=== PATIENT | female | born 1955 | race Two or more races ===

== ENCOUNTER 2018-06-26 19:32 | Inpatient (IN) | payer MEDICARE, OTHER ==
[~2018-06-26] VITALS: Ht 127 cm; Wt 54.0 kg
[2018-06-26] MEDS ORDERED: SENN-18 PO (20:28)
[2018-06-26] MEDS ORDERED: MECL12.582 PO (20:29)
[2018-06-26] MEDS ORDERED: CARB-93 PO (20:32)
[2018-06-26] MEDS ORDERED: CALC-494 PO (20:34)
[2018-06-26] MEDS ORDERED: BENA40TA8 PO (20:35)
[2018-06-26] MEDS ORDERED: MIRT15TA7 PO (20:36)
[2018-06-26] MEDS ORDERED: OLAN10TA3 PO (20:37)
[2018-06-26] MEDS ORDERED: LAMO200T2 PO (20:37)
[2018-06-26] MEDS ORDERED: METF-440 PO (20:38)
[2018-06-26] MEDS ORDERED: LORAZEPAM 0.5 MG TABLET PO PRN (21:00)
[2018-06-26] MEDS ORDERED: MAGNESIUM HYDROXIDE 30 ML UDC PO PRN (21:00)
[2018-06-26] MEDS ORDERED: MAG HYDROX/AL HYDROX/SIMETH 30 ML UDC PO PRN (21:00)
[2018-06-26] MEDS ORDERED: ACETAMINOPHEN 325 MG TABLET PO PRN (21:00)
[2018-06-26] MEDS: BLOOD SUGAR DIAGNOSTIC 1 EACH STRIP IN SCH (21:20)
[2018-06-26] MEDS ORDERED: SENNOSIDES 8.6 MG TABLET PO PRN (21:30)
[2018-06-26] MEDS ORDERED: MECLIZINE HCL 12.5 MG TABLET PO PRN (21:30)
[2018-06-26] MEDS ORDERED: DEXTROSE 50%-WATER 50 ML DISP.SYRIN IV PRN (21:30)
[2018-06-26] MEDS ORDERED: LORAZEPAM 1 MG TABLET PO PRN (22:00)
[2018-06-26] MEDS: ZOLPIDEM TARTRATE 5 MG TABLET PO PRN (23:08)
--- NOTE | 2018-06-26 23:12 | NUR ---
GPS RN NOTES ; AMBIEN 5 MG PO PRN , PT. REFUSED TO TAKE , CHARGE NURSE MADE AWARE AND AMBIEN 5 MG, WASTE IN OMNICELL WITH CHARGE NURSE.
--- NOTE | 2018-06-26 23:16 | NUR ---
ADMISSION NOTES ADMITTED THIS 62 Y/O FEMALE PATIENT DIRECT ADMIT FROM [facility] , PT IS ON 5150 HOLD , GD ,DTS, PER HOLD , SHE ATTEMPTED TO PUT A TOOTHBRUSH 5,DOWN HER THROAT SHE IS NOT ABLE TO TO EXPLAIN RELIABLY WHY SHE DID THIS OR WHY SHE WAS TRYING TO GOUGE HER EYES OUT WITH HER FINGERNAILS,BEFORE BEING HOSPITAL , PT. HAS HX OF PSYCHOSIS, UPON FACE TO FACE ASSESSMENT PATIENT IS A&O X-1 UNCOOPERTIVE,DISORGNIZED HYPERVERBAL VERY AGGRESSIVE SCREAMING YELLING, FLAT AFFECT ,EASILY AGITATED , PT.IS POOR HISTORIAN, POOR INSIGHT ,POOR JUDGEMENT ,V/S WNL, NO ACUTE DISTRESS NOTED , MD AWARE AND NOTIFIED OF THE ADMISSION, PT. SKIN ASSESSMENT DONE, ENCOURAGED PT. VERBALIZED ANY FEELING CONCERN TO STAFF, ORIENT TO UNIT POLICY, WILL CONTINUE TO MONITOR FOR Q15 SAFETY AND BEHAVIOR.
[2018-06-27 00:48] VITALS: BP 137/80
[2018-06-27] MEDS: BLOOD SUGAR DIAGNOSTIC 1 EACH STRIP IN SCH ×4 (07:45→22:06)
[2018-06-27 07:55] LABS: BASOPHILS % (AUTO) 0.6 % (0.0-2.0); EOSINOPHILS % (AUTO) 1.9 % (0.0-6.0); HEMATOCRIT 42 % (33-45); HEMOGLOBIN 13.5 g/dL (11.5-14.8); LYMPHOCYTES # (AUTO) 1.7 /CMM (0.8-4.8); MEAN CORPUSCULAR HGB CONC 32 g/dl (31.0-36.0); MEAN CORPUSCULAR VOLUME 87 fL (82-100); MONOCYTES # (AUTO) 0.6 /CMM (0.1-1.30); MONOCYTES % (AUTO) 6.9 % (2.0-12.0); NEUTROPHILS # (AUTO) 5.8 /CMM (1.8-8.9); NEUTROPHILS % (AUTO) 69.6 % (43.0-81.0); PLATELET COUNT (AUTO) 305 /CMM (150-450); RDW COEFFICIENT OF VARIATION 13.1 (11.5-15.0); WHITE BLOOD COUNT (AUTO) 8.3 K/uL (4.3-11.0)
[2018-06-27 07:56] LABS: ALBUMIN 4.1 g/dL (3.4-5.0); BILIRUBIN,TOTAL 0.3 mg/dL (0.2-1.0); CALCIUM, SERUM 9.1 mg/dL (8.5-10.1); CREATININE 1.2 mg/dL (0.6-1.3); POTASSIUM 3.8 mmol/L (3.5-5.1); TOTAL PROTEIN, SERUM 7.9 g/dL (6.4-8.2)
[2018-06-27 08:00] VITALS: BP 163/81
[2018-06-27] MEDS: CARBIDOPA/LEVODOPA 25/100 MG 1 UDTAB PO SCH ×3 (09:18→16:08)
[2018-06-27] MEDS: CALCIUM CARBONATE 500 MG TAB.CHEW PO SCH (09:49)
[2018-06-27] MEDS: LamoTRIgine 100 MG TABLET PO SCH ×2 (09:49→21:58)
[2018-06-27] MEDS: OLANZAPINE 5 MG/TAB.RAPDIS PO SCH ×2 (11:06→21:58)
--- NOTE | 2018-06-27 14:35 | NUR ---
MAHI called the pt's son, Julian ([phone]), and he stated that he would like the SW to call him back around 3:30 when he is off of work.
[2018-06-27 16:00] VITALS: BP 116/73
--- NOTE | 2018-06-27 16:02 | NUR ---
Initial Discharge Plan: Pt currently resides at an assisted living facility called [facility] located at [address] [place] [address]; . Per pt's son, Julian ([phone]), he would like her to return. SW will work with the pt and the MD regarding appropriate discharge planning. SW will form a safe and proper discharge.
[2018-06-27] MEDS: BENAZEPRIL HCL 20 MG TABLET PO SCH (16:08)
--- NOTE | 2018-06-27 19:30 | NUR ---
GPS RN NOTE, RECEIVED PATIENT AWAKE AND IN BED, NO S/S OR COMPLAINTS OF PAIN AT THIS TIME. PATIENT IS DISPLAYING NO S/S OF APPARENT DISTRESS AT THIS TIME. PATIENT BREATHING IS UNLABORED WITH EQUAL RISE AND FALL OF THE CHEST. PATIENT IS ALERT AND ORIENTED X 1 -2 ON ROOM AIR WITH A SPO2 OF 97%. PATIENT IS MED COMPLIANT, DISORGANIZED, CONFUSED, COMBATIVE WITH CARE, HYPERVERBAL AT TIMES AND NEEDS REORIENTATION. PATIENT DENIES SUICIDE IDEATIONS AND HOMICIDAL IDEATIONS AT THIS TIME. PATIENT ASSISTED WITH TURING AND REPOSITIONING Q2HR AND PRN FOR COMFORT AND CIRCULATION. PATIENT HAS NO NEEDS AT THIS TIME. PATIENT EDUCATED ON THE USE OF THE CALL CHAMBERLAIN. PATIENT BED SIDE RAILS ARE UP X 2 FOR SAFETY, BED IS LOCKED AND LOW WILL CONTINUE TO MONITOR AND MAINTAIN SAFETY Q 15MIN WITH THE HELP OF STAFF.
[2018-06-27 20:18] VITALS: BP 123/81
[2018-06-27] MEDS: ATORVASTATIN 10 MG TABLET PO SCH (21:58)
[2018-06-28] MEDS: BLOOD SUGAR DIAGNOSTIC 1 EACH STRIP IN SCH ×4 (07:34→21:08)
[2018-06-28 08:00] VITALS: BP 102/61
[2018-06-28] MEDS: CARBIDOPA/LEVODOPA 25/100 MG 1 UDTAB PO SCH ×3 (08:55→17:18)
[2018-06-28] MEDS: OLANZAPINE 5 MG/TAB.RAPDIS PO SCH ×2 (08:55→21:08)
[2018-06-28] MEDS: LamoTRIgine 100 MG TABLET PO SCH ×2 (08:55→21:08)
[2018-06-28] MEDS: CALCIUM CARBONATE 500 MG TAB.CHEW PO SCH (08:56)
[2018-06-28] MEDS: BENAZEPRIL HCL 20 MG TABLET PO SCH ×2 (08:56→17:18)
--- NOTE | 2018-06-28 14:11 | NUR ---
MAHI called [facility] ([phone]) and spoke to Caitie who stated that an agreement was made stating that the pt can return to the facility if there are no behavioral concerns.
--- NOTE | 2018-06-28 14:18 | NUR ---
Caiite ([phone]) from [facility] stated that she would like notes closer to discharge faxed to her at the fax number: [phone].
[2018-06-28 16:00] VITALS: BP 108/62
[2018-06-28 19:50] VITALS: BP 93/53
[2018-06-28 20:00] VITALS: BP 93/53
[2018-06-28] MEDS: ATORVASTATIN 10 MG TABLET PO SCH (21:08)
[2018-06-28] MEDS: ZOLPIDEM TARTRATE 5 MG TABLET PO PRN (23:43)
[2018-06-29 08:00] VITALS: BP 100/65
[2018-06-29] MEDS: BLOOD SUGAR DIAGNOSTIC 1 EACH STRIP IN SCH ×4 (08:02→21:53)
[2018-06-29] MEDS: CALCIUM CARBONATE 500 MG TAB.CHEW PO SCH (08:50)
[2018-06-29] MEDS: BENAZEPRIL HCL 20 MG TABLET PO SCH ×2 (08:51→17:00)
[2018-06-29] MEDS: CARBIDOPA/LEVODOPA 25/100 MG 1 UDTAB PO SCH ×3 (08:51→17:13)
[2018-06-29] MEDS: OLANZAPINE 5 MG/TAB.RAPDIS PO SCH ×2 (08:51→21:52)
[2018-06-29] MEDS: LamoTRIgine 100 MG TABLET PO SCH ×2 (08:51→21:53)
--- NOTE | 2018-06-29 11:04 | NUR ---
WOUND CARE CONSULT: PT SEEN FOR DRY SKIN ON FEET. SOME DRY FLAKY SKIN NOTED TO FEET. RECOMMEND MOISTURIZER. DISCUSSED WITH NURSING STAFF. PT AMBULATORY WITH WALKER AND CONTINENT. SITTER AT BEDSIDE. WILL SEE PRN.
[2018-06-29 16:00] VITALS: BP 101/60
[2018-06-29] MEDS: INSULIN REGULAR, HUMAN 100 UNIT/ML 3 ML VIAL SQ PRN ×2 (17:58→21:54)
[2018-06-29 20:00] VITALS: BP 107/58
[2018-06-29] MEDS: ATORVASTATIN 10 MG TABLET PO SCH (21:52)
[2018-06-30 07:12] LABS: APPEARANCE,URINE CLOUDY (CLEAR); BILIRUBIN,URINE NEGATIVE (NEGATIVE); BLOOD, URINE NEGATIVE Ery/uL (NEGATIVE); COLOR,URINE YELLOW (YELLOW); KETONES,URINE TRACE (NEGATIVE); LEUKOCYTE ESTERASE ,URINE NEGATIVE (NEGATIVE); NITRITE, URINE NEGATIVE (NEGATIVE); PROTEIN,URINE NEGATIVE (NEGATIVE); UGLUCOSE NEGATIVE (NEGATIVE); UROBILINOGEN,URINE 0.2 EU/dL (0.2)
[2018-06-30 07:34] LABS: BACTERIA,URINE Moderate /HPF (None Seen); RBC,URINE 0-2 /HPF (0-2); SQUAMOUS EPITHELIAL CELL,UR Few /HPF (None Seen)
[2018-06-30 07:35] LABS: URINE AMORPHOUS URATE Many /HPF (None Seen); WBC,URINE 0-2 /HPF (0-3)
[2018-06-30] MEDS: BLOOD SUGAR DIAGNOSTIC 1 EACH STRIP IN SCH ×4 (07:38→21:49)
[2018-06-30 08:00] VITALS: BP 100/56
[2018-06-30] MEDS: CALCIUM CARBONATE 500 MG TAB.CHEW PO SCH (08:50)
[2018-06-30] MEDS: LamoTRIgine 100 MG TABLET PO SCH ×2 (08:50→21:47)
[2018-06-30] MEDS: CARBIDOPA/LEVODOPA 25/100 MG 1 UDTAB PO SCH ×3 (08:50→17:35)
[2018-06-30] MEDS: OLANZAPINE 5 MG/TAB.RAPDIS PO SCH (08:51)
[2018-06-30] MEDS: BENAZEPRIL HCL 20 MG TABLET PO SCH ×2 (08:51→17:00)
[2018-06-30 16:00] VITALS: BP 100/61
[2018-06-30 20:00] VITALS: BP 107/63
[2018-06-30] MEDS: ATORVASTATIN 10 MG TABLET PO SCH (21:47)
[2018-06-30] MEDS: INSULIN REGULAR, HUMAN 100 UNIT/ML 3 ML VIAL SQ PRN (21:50)
[2018-06-30] MEDS: OLANZAPINE 10 MG TABLET PO SCH (22:05)
[2018-07-01] MEDS: BLOOD SUGAR DIAGNOSTIC 1 EACH STRIP IN SCH ×4 (07:29→22:17)
[2018-07-01 08:00] VITALS: BP 112/68
[2018-07-01] MEDS: CARBIDOPA/LEVODOPA 25/100 MG 1 UDTAB PO SCH ×3 (08:13→16:34)
[2018-07-01] MEDS: CALCIUM CARBONATE 500 MG TAB.CHEW PO SCH (08:13)
[2018-07-01] MEDS: BENAZEPRIL HCL 20 MG TABLET PO SCH ×2 (08:14→16:34)
[2018-07-01] MEDS: LamoTRIgine 100 MG TABLET PO SCH ×2 (08:14→22:16)
[2018-07-01] MEDS: OLANZAPINE 5 MG/TAB.RAPDIS PO SCH (08:17)
[2018-07-01] MEDS: INSULIN REGULAR, HUMAN 100 UNIT/ML 3 ML VIAL SQ PRN (12:29)
[2018-07-01 16:00] VITALS: BP 99/60
[2018-07-01 20:00] VITALS: BP 111/67
[2018-07-01] MEDS: ATORVASTATIN 10 MG TABLET PO SCH (22:16)
[2018-07-01] MEDS: OLANZAPINE 10 MG TABLET PO SCH (22:16)
[2018-07-01] MEDS: ZOLPIDEM TARTRATE 5 MG TABLET PO PRN (22:17)
[2018-07-02] MEDS: BLOOD SUGAR DIAGNOSTIC 1 EACH STRIP IN SCH ×4 (07:53→21:16)
[2018-07-02 08:00] VITALS: BP 109/67
[2018-07-02] MEDS: CALCIUM CARBONATE 500 MG TAB.CHEW PO SCH (08:51)
[2018-07-02] MEDS: LamoTRIgine 100 MG TABLET PO SCH ×2 (08:51→21:15)
[2018-07-02] MEDS: OLANZAPINE 5 MG/TAB.RAPDIS PO SCH (08:51)
[2018-07-02] MEDS: BENAZEPRIL HCL 20 MG TABLET PO SCH ×2 (08:51→17:00)
[2018-07-02] MEDS: CARBIDOPA/LEVODOPA 25/100 MG 1 UDTAB PO SCH ×3 (08:53→17:06)
--- NOTE | 2018-07-02 10:07 | NUR ---
RN NOTE: PATIENT REFUSED COVERAGE. OFFERED 3X.
[2018-07-02] MEDS: INSULIN REGULAR, HUMAN 100 UNIT/ML 3 ML VIAL SQ PRN ×2 (12:51→21:17)
[2018-07-02 16:00] VITALS: BP 95/55
--- NOTE | 2018-07-02 18:54 | NUR ---
GPS OVERFLOW TRANSFER NOTE RECEIVED REPORT FROM MAGDALENO KIRKPATRICK. PT IS A/O X2, AFEBRILE. RESPIRATIONS ARE EVEN AND UNLABORED, NOT IN ANY ACUTE DISTRESS NOTED. PT DENIES ANY PAIN, NO SOB, N/V NOTED. NO IV ACCESS. SITTER AT BEDSIDE. WILL ENDORSE TO NEXT SHIFT FOR CONTINUITY OF CARE.
--- NOTE | 2018-07-02 19:50 | NUR ---
RN INITIAL NOTES: RECEIVED REPORT FROM CAMILO DOLAN. PT TRANSFERRED FROM GPS, PT IS IN BED, A/O X2 ON RA RESPIRATION EVEN AND UNLABORED, PT STATED SHE IS FROM [place] AND LANGUAGE IS [place]?,PT DENIES ANY PAIN OR DISCOMFORT AT THIS TIME. NO IV ACCESS PER GPS POLICY. PT IS CONTINENT, AMBULATORY WITH ASSISTANCE, DENIES ANY SI/HI AT THIS TIME. COMPLIANT WITH MEDICATION. SITTER AT BED SIDE. WILL CONTINUE TO MONITOR [id number] FOR SAFETY AND ANY CHANGES IN BEHAVIOR.
[2018-07-02 20:00] VITALS: BP 110/66
[2018-07-02] MEDS: ATORVASTATIN 10 MG TABLET PO SCH (21:15)
[2018-07-02] MEDS: OLANZAPINE 10 MG TABLET PO SCH (21:17)
--- NOTE | 2018-07-02 21:18 | NUR ---
accu check 131: blood sugar checked and reveal 131,2units of insulin given per sliding scale, pt tolerating po intake, will monitor for any s/s of hypoglycemia
[2018-07-03] MEDS: BLOOD SUGAR DIAGNOSTIC 1 EACH STRIP IN SCH ×4 (06:17→21:25)
[2018-07-03] MEDS: INSULIN REGULAR, HUMAN 100 UNIT/ML 3 ML VIAL SQ PRN ×4 (06:17→21:30)
--- NOTE | 2018-07-03 06:18 | NUR ---
ACCU CHECK 78: BLOOD SUGAR RESULT IS 78, NO INSULIN COVERAGE GIVEN PER SLIDING SCALE, ORANGE JUICE PROVIDED, PT DRINK 100%
--- NOTE | 2018-07-03 06:59 | NUR ---
rn clsoing notes: pt in bed, awake, remains a/o x2, remains calm and cooperative throughout the shift, denies any si/hi, no untoward behavior noted, sitter remains at bed side. pt's total hours of sleep is 8hrs. vs remains stable, needs attended. bed brake engaged, side rails up x2 for safety. will continue to monitor [id number] for safety and any changes in behavior. will endorse to day rn for continuity of care.
[2018-07-03] MEDS: BENAZEPRIL HCL 20 MG TABLET PO SCH ×2 (09:00→16:51)
[2018-07-03] MEDS: CALCIUM CARBONATE 500 MG TAB.CHEW PO SCH (09:09)
[2018-07-03] MEDS: OLANZAPINE 5 MG/TAB.RAPDIS PO SCH (09:11)
[2018-07-03] MEDS: LamoTRIgine 100 MG TABLET PO SCH ×2 (09:11→21:27)
[2018-07-03] MEDS: CARBIDOPA/LEVODOPA 25/100 MG 1 UDTAB PO SCH ×3 (09:11→16:51)
--- NOTE | 2018-07-03 16:06 | NUR ---
MAHI called the pt's son, Julian ([phone]), and stated that there is no discharge date yet but the SW will be sending more updated notes today to [facility] ([facility]) so that they are prepared for readmitting the pt.
--- NOTE | 2018-07-03 16:22 | NUR ---
MAHI faxed updated notes for the pt to Caitie ([phone]) from [facility] to her fax number: [phone].
--- NOTE | 2018-07-03 18:46 | NUR ---
GPS overflow Patient is A/O x1 , cooperative and compliant with her medication. No agitated behavior, ambulates independently with walker, standby assist. Continued on 5250 hold per psych, 1:1 sitter at the bedside. Will endorse to oncoming RN.
--- NOTE | 2018-07-03 19:15 | NUR ---
RN OPENING NOTES PATIENT AWAKE RESTING IN BED, A/O X1, PER DAY SHIFT NURSE PATIENT COOPERATIVE AND COMPLIANT WITH MEDICATION. 1:1 SITTER AT BEDSIDE. NO AGITATED BEHAVIOR NOTED AT THIS TIME. WILL CONTINUE 15 MINUTE CHECKS AND CONTINUE TO MONITOR.
[2018-07-03] MEDS: OLANZAPINE 10 MG TABLET PO SCH (21:26)
[2018-07-03] MEDS: ATORVASTATIN 10 MG TABLET PO SCH (21:27)
[2018-07-04 07:00] VITALS: BP 104/50
[2018-07-04] MEDS: BLOOD SUGAR DIAGNOSTIC 1 EACH STRIP IN SCH ×4 (07:07→21:16)
[2018-07-04] MEDS: CALCIUM CARBONATE 500 MG TAB.CHEW PO SCH (08:38)
[2018-07-04] MEDS: CARBIDOPA/LEVODOPA 25/100 MG 1 UDTAB PO SCH ×3 (08:38→16:28)
[2018-07-04] MEDS: BENAZEPRIL HCL 20 MG TABLET PO SCH ×2 (08:39→16:28)
[2018-07-04] MEDS: OLANZAPINE 5 MG/TAB.RAPDIS PO SCH (08:39)
[2018-07-04] MEDS: LamoTRIgine 100 MG TABLET PO SCH ×2 (09:14→21:16)
[2018-07-04] MEDS: INSULIN REGULAR, HUMAN 100 UNIT/ML 3 ML VIAL SQ PRN ×2 (12:12→16:30)
--- NOTE | 2018-07-04 18:15 | NUR ---
MS RN CLOSING NOTES Patient is A/O x1 , cooperative and compliant with her medication. Good appetite, no agitated behavior, ambulates independently with walker, standby assist. Continued GPS hospitalization per psych, on 5249 hold. 1:1 sitter at the bedside. Will endorse to oncoming RN.
--- NOTE | 2018-07-04 19:05 | NUR ---
RN OPENING NOTES PATIENT AWAKE RESTING IN BED, A/O X1, PATIENT COOPERATIVE AND COMPLIANT WITH MEDICATION. 1:1 SITTER AT BEDSIDE. NO AGITATED BEHAVIOR NOTED AT THIS TIME. WILL CONTINUE 15 MINUTE CHECKS AND CONTINUE TO MONITOR.
[2018-07-04 19:24] VITALS: BP 106/65
[2018-07-04] MEDS: OLANZAPINE 10 MG TABLET PO SCH (21:15)
[2018-07-04] MEDS: ATORVASTATIN 10 MG TABLET PO SCH (21:16)
[2018-07-04] MEDS: ZOLPIDEM TARTRATE 5 MG TABLET PO PRN (22:48)
[2018-07-05] MEDS: BLOOD SUGAR DIAGNOSTIC 1 EACH STRIP IN SCH ×4 (06:57→22:31)
[2018-07-05 07:49] VITALS: BP 101/90
[2018-07-05 08:00] VITALS: BP 101/74
--- NOTE | 2018-07-05 08:00 | NUR ---
RN NOTES PATIENT IN BED RESTING ALERT, ORIENTED X3. DENIES ANY PAIN OR DISCOMFORT. CALM AND COOPERATIVE. SITTER AT BEDSIDE. BED IN LOW LOCKED POSITION. CALL LIGHT WITHIN REACH. WILL CONTINUE TO MONITOR.
[2018-07-05] MEDS: CARBIDOPA/LEVODOPA 25/100 MG 1 UDTAB PO SCH ×3 (08:17→16:27)
[2018-07-05] MEDS: OLANZAPINE 5 MG/TAB.RAPDIS PO SCH (08:17)
[2018-07-05] MEDS: LamoTRIgine 100 MG TABLET PO SCH ×2 (08:17→22:15)
[2018-07-05] MEDS: CALCIUM CARBONATE 500 MG TAB.CHEW PO SCH (08:17)
[2018-07-05] MEDS: BENAZEPRIL HCL 20 MG TABLET PO SCH ×2 (08:39→16:27)
--- NOTE | 2018-07-05 09:00 | NUR ---
GPS RN NOTES PATIENT SEEN AND EVALUATED BY DR. JONES ORDERS TO HAVE [employer] ARRANGE PLACEMENT PATIENT READY TO BE DISCHARGED. [employer] MADE AWARE. WILL CONTINUE TO MONITOR.
--- NOTE | 2018-07-05 11:12 | NUR ---
MAHI called Caitie ([phone]) from [facility] and left a message for her due to the fact that she was in a meeting.
--- NOTE | 2018-07-05 12:14 | NUR ---
MAHI called Caitie ([phone]) from [facility] and she stated that she did not receive the fax that was sent over because she was away. MAHI sent a fax with updated notes once again to the number: [phone].
--- NOTE | 2018-07-05 13:55 | NUR ---
ALAYNA DOLAN NOTES PATIENT TRANSFERRED FO GPS UNIT ROOM 215-2. Addendum: 07/05/18 at 1417 by ADRI GRECO RN repot given to alayna dolan.
--- NOTE | 2018-07-05 14:00 | NUR ---
NURSING NOTE PT WAS TRANSFERRED TO GPS UNIT FROM OVERFLOW AT 1350. PT IS CALM, COOPERATIVE, A&OX2, DENIES SI/HI AT THIS TIME. VS: 124/77, 95, 20, 97%RA, 98.1, 0/10 PAIN. REPORT WAS TAKEN FROM TEE DOLAN. WILL CONTINUE TO MONITOR Q15 MINS FOR SAFETY AND BEHAVIOR.
--- NOTE | 2018-07-05 14:05 | NUR ---
Caitie ([phone]) from [facility] stated that they will take the pt back but they are not sure if they will be able to accommodate a discharge today. She stated that it may have to be the following day.
--- NOTE | 2018-07-05 16:14 | NUR ---
MAHI called Caitie ([phone]) from [facility] and was told to send the pt over the following day for admission.
--- NOTE | 2018-07-05 16:15 | NUR ---
MAHI called the pt's son, Julian ([phone]), and left a message informing him that the pt is being discharged tomorrow back to [facility].
[2018-07-05 16:58] VITALS: BP 124/77
[2018-07-05 19:59] VITALS: BP 105/62
[2018-07-05] MEDS: OLANZAPINE 10 MG TABLET PO SCH (22:14)
[2018-07-05] MEDS: ZOLPIDEM TARTRATE 5 MG TABLET PO PRN (22:15)
[2018-07-05] MEDS: ATORVASTATIN 10 MG TABLET PO SCH (22:15)
[2018-07-06 08:00] VITALS: BP 127/72
[2018-07-06] MEDS: OLANZAPINE 5 MG/TAB.RAPDIS PO SCH (08:25)
[2018-07-06] MEDS: CALCIUM CARBONATE 500 MG TAB.CHEW PO SCH (08:25)
[2018-07-06 08:26] VITALS: BP 127/72
[2018-07-06] MEDS: CARBIDOPA/LEVODOPA 25/100 MG 1 UDTAB PO SCH (08:26)
[2018-07-06] MEDS: BLOOD SUGAR DIAGNOSTIC 1 EACH STRIP IN SCH (08:26)
[2018-07-06] MEDS: LamoTRIgine 100 MG TABLET PO SCH (08:26)
[2018-07-06] MEDS: BENAZEPRIL HCL 20 MG TABLET PO SCH (08:26)
[2018-07-06] MEDS: INSULIN REGULAR, HUMAN 100 UNIT/ML 3 ML VIAL SQ PRN (08:53)
--- NOTE | 2018-07-06 11:20 | NUR ---
GPS/RN PATIENT CLEARED FOR DISCHARGE BY DR TREVIZO AND DR MATSON. MEDICATIONS RECONCILED BY BOTH DR'S. EXIT CARE , MEDICATIONS AND AFTERCARE PLAN EXPLAINED TO PATIENT, VERBALIZED UNDERSTANDING. PATIENT REFUSED TO SIGNS D/C FORMS, COSIGNED BY 2 RN. REFUSED D/C PHOTOS X 3, EXPLAINED RISKS AND BENEFITS. BELONGINGS RETURNED TO PATIENT. REPORT CALLED TO FACILITY, SPOKE WITH CATHERINE. PATIENT DENIES SI/HI/AVH, PSYCHIATRIC TREATMENT PLANS MET. LEFT UNIT, NO MAJOR DISTRESS NOTED WITH AMBULANCE TRANSPORT AT SIDE.
--- NOTE | 2018-07-06 15:56 | NUR ---
Initial Discharge Note: Pt is being discharged to [facility] ([facility]) located [address] [place] [address]; ([phone]). Pt will be transported via [facility] (Trip #[id number]) at 11AM. Pts son, Julian ([phone]), was informed of the discharge via a message that was left on his voicemail. Upon discharge, the pt appeared to be in a dysphoric mood with an anxious affect. Pt was observed to be crying when placed on the gurney and confused about where she was going. SW explained that she was returning to her previous facility and mentioned her son to calm the pt. Pt denied suicidal and homicidal ideation as well as auditory and visual hallucinations. Pt will be under the care of psychiatrist, Dr. Bruce Andrews, located at [address] [facility] [place] [address] [address]; and leather etcher, Dr. Terry Wilks, located at [address] [place] [address]; .
== END 2018-07-06 11:25 | DRG 885 ==
LOC: GPS 19:54 → GPSOV2 07-02 18:41 → GPS 07-05 13:54
PROVIDERS: ADMIT Psychiatry & Neurology Psychiatry; ATTEND Registered Nurse
DX: F23 Brief psychotic disorder (principal); G93.40 Encephalopathy, unspecified; F03.90 Unspecified dementia, unspecified severity, without behavioral disturbance, psychotic disturbance, mood disturbance, and anxiety; F41.9 Anxiety disorder, unspecified; G20 Parkinson's disease; I10 Essential (primary) hypertension; E11.9 Type 2 diabetes mellitus without complications; F32.9 Major depressive disorder, single episode, unspecified; R56.9 Unspecified convulsions; Z87.440 Personal history of urinary (tract) infections; R29.6 Repeated falls; G47.00 Insomnia, unspecified; E66.9 Obesity, unspecified; Z68.33 Body mass index [BMI] 33.0-33.9, adult; E78.5 Hyperlipidemia, unspecified
CPT/HCPCS: 36415; 70450-TC; 71045-TC; 80053-TC; 80061-TC; 81000-TC; 82962-TC; 84443-TC; 85025-TC; 87081-TC; 87086-TC; J1815; J8597; Z7610